=== PATIENT | female | born 1955 | race Caucasian/White ===

== ENCOUNTER 2019-07-03 19:37 | Inpatient (IN) | payer MEDICARE, OTHER ==
[~2019-07-03] VITALS: Ht 157.5 cm; Wt 74.4 kg
--- NOTE | 2019-07-03 19:50 | NUR ---
PT AAOX4. AMBULATORY BIBPA FROM [facility] FOR MEDICAL CLEARANCE. PLACED ON 5150 FOR AGGRESIVE BEHAVIOR TOWARDS STAFF. PLACED IN GOWN, ON MONITOR, AND PULSE OX. AWAITING MD FOR EVAL.
--- NOTE | 2019-07-03 19:50 | NUR ---
URINE COLLECTED AND SENT TO LAB
--- NOTE | 2019-07-03 19:58 | NUR ---
Rosario segura in ED - 07/03/19 at 2002 by ROSE MARY SALES SUPPORT MANAGER AT BEDSIDE FOR LABS
--- NOTE | 2019-07-03 20:02 | NUR ---
ASSOCIATE AGENT INSURANCE SALES AT BEDSIDE FOR LAB COLLECTION
[2019-07-03 20:10] LABS: APPEARANCE,URINE Clear (CLEAR); BILIRUBIN,URINE Negative (NEGATIVE); BLOOD, URINE Negative Ery/uL (NEGATIVE); COLOR,URINE Yellow (YELLOW); KETONES,URINE Negative (NEGATIVE); LEUKOCYTE ESTERASE ,URINE Small (NEGATIVE); NITRITE, URINE Negative (NEGATIVE); PH,URINE 5.5 (5.0-8.0); PROTEIN,URINE Negative (NEGATIVE); UGLUCOSE Negative (NEGATIVE); UROBILINOGEN,URINE 0.2 EU/dL (0.2)
[2019-07-03] MEDS ORDERED: CALC1TAB30 PO (20:12)
[2019-07-03] MEDS ORDERED: LORA10TA7 PO (20:12)
[2019-07-03] MEDS ORDERED: LEVO50TA8 PO (20:12)
[2019-07-03] MEDS ORDERED: INSU100V10 SQ (20:12)
[2019-07-03] MEDS ORDERED: QUET100T PO (20:12)
[2019-07-03] MEDS ORDERED: TYL2T PO (20:12)
[2019-07-03] MEDS ORDERED: ALOG12.52 PO (20:12)
[2019-07-03] MEDS ORDERED: METF-441 PO (20:12)
[2019-07-03] MEDS ORDERED: MELA3CAP2 PO (20:12)
[2019-07-03] MEDS ORDERED: BENZ1TAB7 PO (20:12)
[2019-07-03] MEDS ORDERED: ESCI10TA GT (20:12)
[2019-07-03] MEDS ORDERED: MIRT15TA7 PO (20:12)
[2019-07-03 20:13] LABS: BASOPHILS # (AUTO) 0.1 /CMM (0.0-0.2); BASOPHILS % (AUTO) 0.8 % (0.0-2.0); EOSINOPHILS % (AUTO) 2.4 % (0.0-6.0); HEMATOCRIT 41 % (33-45); HEMOGLOBIN 13.5 g/dL (11.5-14.8); LYMPHOCYTES # (AUTO) 2.7 /CMM (0.8-4.8); LYMPHOCYTES % (AUTO) 35.7 % (20.0-44.0); MEAN CORPUSCULAR HGB CONC 33 g/dl (31.0-36.0); MEAN CORPUSCULAR VOLUME 92 fL (82-100); MONOCYTES # (AUTO) 0.5 /CMM (0.1-1.30); MONOCYTES % (AUTO) 6.2 % (2.0-12.0); NEUTROPHILS # (AUTO) 4.2 /CMM (1.8-8.9); NEUTROPHILS % (AUTO) 54.9 % (43.0-81.0); PLATELET COUNT (AUTO) 229 /CMM (150-450); RED BLOOD CELL COUNT(AUTO) 4.44 MIL/uL (4.0-5.2); WHITE BLOOD COUNT (AUTO) 7.7 K/uL (4.3-11.0)
[2019-07-03 20:31] LABS: BACTERIA,URINE Rare /HPF (None Seen); RBC,URINE 0-2 /HPF (0-2); SQUAMOUS EPITHELIAL CELL,UR 0-2 /HPF (None Seen)
--- NOTE | 2019-07-03 20:32 | NUR ---
Patient is resting comfortably in bed with eyes closed. Easily aroused. VSS
[2019-07-03 20:44] LABS: CALCIUM, SERUM 8.8 mg/dL (8.5-10.1); CARBON DIOXIDE 26 mmol/L (21-32); CHLORIDE 103 mmol/L (98-107); GLUCOSE 167 mg/dL (74-106); POTASSIUM 4.6 mmol/L (3.5-5.1); SODIUM SERUM 138 mmol/L (136-145); UREA NITROGEN, BLOOD 19 mg/dL (7-18)
[2019-07-03 20:49] LABS: ALANINE AMINOTRANSFERASE 16 U/L (12-78); ALBUMIN 3.3 g/dL (3.4-5.0); ALKALINE PHOSPHATASE 85 U/L (46-116); ASPARTATE AMINOTRANSFERASE 17 U/L (15-37); BILIRUBIN,DIRECT 0.1 mg/dL (0.0-0.2); BILIRUBIN,TOTAL 0.2 mg/dL (0.2-1.0); TOTAL PROTEIN, SERUM 6.9 g/dL (6.4-8.2)
[2019-07-03 21:01] LABS: SALICYLATE 2.2 mg/dL (2.8-20.0)
[2019-07-03 21:02] LABS: ACETAMINOPHEN 0 ug/ml (10-30); ALCOHOL, BLOOD < 3 mg/dL (0-0)
--- NOTE | 2019-07-03 21:16 | NUR ---
Rosario segura in [facility] - 07/03/19 at 2119 by ROSE MARY MARINA CHERRY SPOKE TO GRIFFIN REGARDING PT ADMISSION.
--- NOTE | 2019-07-03 21:30 | NUR ---
REPORT GIVEN TO DEJAH RODRIGUEZ FOR JAMES
[2019-07-03] MEDS ORDERED: ZOLPIDEM TARTRATE 5 MG TABLET PO PRN (22:30)
[2019-07-03] MEDS ORDERED: ACETAMINOPHEN 325 MG TABLET PO PRN (22:30)
[2019-07-03] MEDS ORDERED: MAG HYDROX/AL HYDROX/SIMETH 30 ML UDC PO PRN (22:30)
[2019-07-03] MEDS ORDERED: MAGNESIUM HYDROXIDE 30 ML UDC PO PRN (22:30)
[2019-07-03] MEDS ORDERED: BLOOD SUGAR DIAGNOSTIC 1 EACH STRIP IN ONE (23:00)
--- NOTE | 2019-07-03 23:43 | NUR ---
GPS RN NOTE, PATIENT HAS A BLOOD SUGAR OF 163 AND NEEDS A MEDICATION RECONSULTATION. PAGED DR NEAL GROUP AND INFORMED DR NADEGE HOWARD OF MY FINDINGS. DR NADEGE HOWARD ORDER MILD INSULIN SLIDING SCALE AND SAID HE WOULD RECONCILE PATIENT MEDICATIONS IN THE A.M. ALL ORDERS NOTED AND CARRIED OUT WILL CONTINUE TO MONITOR THIS PATIENT WITH THE HELP OF STAFF.
[2019-07-04] MEDS ORDERED: DEXTROSE 50%-WATER 50 ML DISP.SYRIN IV PRN
[2019-07-04 01:25] VITALS: BP 101/67
--- NOTE | 2019-07-04 03:00 | NUR ---
GPS RN NOTES: RECEIVED A 63 Y/O FEMALE FROM ER INITIALLY FROM [facility]. PT ARRIVED ON THIS UNIT AT 2200 VIA WHEEL CHAIR WITH 1 ER ESCORT. PT ADMITTED ON 5150 FOR DTO. HOLD WAS PLACED 07/03/2019 @ 1730. PER HOLD, PT WAS PLACED ON HOLD DUE TO AGGRESSIVE BEHAVIOR TOWARDS STAFF AND RESIDENTS AT [facility] WHERE PT RESIDES. CRISIS TEAM WAS CALLED TO EVALUATE PT. PER CRISIS TEAM, UPON ARRIVAL PT WAS UPSET, YELLING, ANGRY AND CONFUSED. PT WAS YELLING AT STAFF MEMBERS AND HAD TROUBLE BEING REDIRECTED OR COOPERATIVE WITH STAFF. PRIOR TO CRISIS TEAM ARRIVAL, PT WAS THROWING OBJECTS AT STAFF WITH NO REGARD TO THE SAFETY OF OTHER RESIDENTS. UPON FACE TO FACE EVALUATION, PT PRESENTS A/O X2, APPEARS DEPRESSED, CALM, COOPERATIVE, ANXIOUS, WITHDRAWN, AND ISOLATIVE. PT IS AMBULATORY WITH STEADY GAIT. PT SIGNED ALL ADMISSION PAPERS, REPORTS SHE HAS NO NEXT OF KIN AND WANTS NON DISCLOSURES OF HER ADMISSION IN SO. ON SKIN ASSESSMENT PT HAS IRRITATION AND REDNESS ON HER RIGHT GROIN AREA, WITH MULTIPLE OLD SCARS AND SCRATCHES ON HER ABDOMEN AND BLE. ACCU CHEK DONE/BS 163. NO S/S OF ACUTE DISTRESS. PT DENIES SI, HI, OR PAIN AT THIS TIME. PT BREATHING IS EVEN AND UNLABORED WITH EQUAL RISE AND FALL OF THE CHEST WITH SPO2 OF 97%. PT IS FULL CODE AND HAS NKA. PER PT MEDICAL PAPERS, PT HISTORY INCLUDE COPD WHICH PT DENIES, TYPE 2 DIABETES, HYPOTHYROIDISM, ACUTE KIDNEY FAILURE, CORONARY DISEASE, IDIOPATHIC PERIPHERAL AUTONOMIC NEUROPATHY. PT BELONGING AND CONTRABAND WERE CHECKED, PT HAS NO CONTRABAND. PT ADVISED OF HOLD. PT RIGHTS DISCUSSED AND PT HANDBOOK PROVIDED. GUIDE TO PRESCRIPTION MEDICATION GIVEN. PT WILL BE UNDER THE CARE OF DR VELASCO PSYCHIATRIST AND VAL INTERNAL MEDICINE. PT ORIENTED TO UNIT, STAFF, DOCTORS, CARE PLAN AND UNIT POLICIES. BOTH DOCTORS HAVE BEEN NOTIFIED OF PT ADMISSION AND MED RECONCILIATION DONE. MRSA BOTH NARES DONE AT ER. FALL PRECAUTION INITIATED, SAFETY PRECAUTION INITIATED WITH Q 15MINUTES OBSERVATION. BED IN LOW LOCKED POSITION, SIDE RAILS UP X2. ALL PT NEEDS MET. WILL CONTINUE TO MONITOR FOR SAFETY, MOOD AND BEHAVIOR AND ENDORSE TO AM NURSE.
[2019-07-04] MEDS ORDERED: INSU100V3 SQ (07:25)
[2019-07-04] MEDS ORDERED: CALC-7 PO (07:25)
[2019-07-04] MEDS ORDERED: DOCU250C14 PO (07:25)
[2019-07-04] MEDS ORDERED: PSYL3.4P6 PO (07:25)
[2019-07-04] MEDS ORDERED: BLOO-668 IN (07:25)
[2019-07-04] MEDS ORDERED: MULT-447 PO (07:25)
[2019-07-04] MEDS: BLOOD SUGAR DIAGNOSTIC 1 EACH STRIP IN SCH ×4 (07:29→22:01)
[2019-07-04 08:00] VITALS: BP 110/75
--- NOTE | 2019-07-04 09:13 | NUR ---
GPS RN NURSING NOTE: RECEIVED PATIENT SITTING UP IN CHAIR. PATIENT IS AOX1-2. NO S/S OR COMPLAINTS OF PAIN AT THIS TIME. PATIENT IS DISPLAYING NO S/S OF APPARENT DISTRESS AT THIS TIME. PATIENT BREATHING IS UNLABORED WITH EQUAL RISE AND FALL OF THE CHEST. PATIENT DENIES SI/HI AND VAH. PATIENT ASSISTED WITH TURNING AND REPOSITIONING Q2HR AND PRN FOR COMFORT AND CIRCULATION. PATIENTS NEEDS ATTENDED TO. PT EDUCATED ON USE OF CALL MCGHEE. BED IN LOCKED AND LOW POSITION WITH 2 SIDE RAILS UP FOR SAFETY. ENVIRONMENTAL CHECKS DONE. FALL PRECAUTIONS IN PLACE. WILL CONTINUE TO MONITOR PATIENT Q15 FOR MOOD, SAFETY, AND BEHAVIOR.
[2019-07-04] MEDS: INSULIN REGULAR, HUMAN 100 UNIT/ML 3 ML VIAL SQ PRN ×2 (11:56→17:20)
[2019-07-04] MEDS: BENZTROPINE MESYLATE (1 MG) 1 MG TABLET PO SCH ×2 (12:30→16:19)
[2019-07-04] MEDS: ESCITALOPRAM OXALATE (10 MG) 10 MG TABLET PO SCH (13:17)
[2019-07-04] MEDS: QUETIAPINE FUMARATE 100 MG TABLET PO SCH ×2 (13:17→16:16)
--- NOTE | 2019-07-04 13:20 | NUR ---
GPS RN NOTE: COGENTIN PATIENT TOOK HER PSYCHOTROPIC MEDICATIONS BUT REFUSED COGENTIN WITH ADMINISTRATION STATING THAT SHE HAS TAKEN IT BEFORE AND IT "DRIVES HER CRAZY" Addendum: 07/04/19 at 1619 by RADHA RAMÍREZ RN refused 1700 eleanor
[2019-07-04 16:03] VITALS: BP 112/75
[2019-07-04] MEDS ORDERED: ACETAMINOPHEN 325 MG TABLET PO PRN (16:30)
[2019-07-04] MEDS ORDERED: INSULIN REGULAR, HUMAN 100 UNIT/ML 3 ML VIAL SQ PRN (16:30)
[2019-07-04] MEDS: METFORMIN 850 MG TABLET PO SCH (17:05)
[2019-07-04] MEDS: PSYLLIUM SEED 1 PKT PACKET PO SCH (17:05)
[2019-07-04] MEDS ORDERED: BLOOD SUGAR DIAGNOSTIC 1 EACH STRIP IN SCH (17:30)
[2019-07-04 20:09] VITALS: BP 120/70
[2019-07-04] MEDS: MIRTAZAPINE 15 MG TABLET PO SCH (21:39)
[2019-07-04] MEDS: INSULIN GLARGINE, 100 UNIT/ML CARTRIDGE SQ SCH (22:00)
--- NOTE | 2019-07-04 22:06 | NUR ---
GPS RN NOTE 2200 ACCU CHEK DONE. BS 149. PT REFUSED LANTUS AND REGULAR INSULIN SLIDING SCALE ORDERED. WILL CONTINUE TO MONITOR PT.
--- NOTE | 2019-07-04 22:27 | NUR ---
GPS RN NOTE PT REQUESTED FOR SLEEP MEDICATION TO ENABLE HER SLEEP. AMBIEN 5MG 1 TAB GIVEN PO ORDERED. WILL CONTINUE TO MONITOR PT AND REASSESS.
[2019-07-05 06:41] LABS: BASOPHILS % (AUTO) 0.8 % (0.0-2.0); EOSINOPHILS % (AUTO) 2.9 % (0.0-6.0); HEMATOCRIT 39 % (33-45); HEMOGLOBIN 13.3 g/dL (11.5-14.8); LYMPHOCYTES # (AUTO) 2.1 /CMM (0.8-4.8); LYMPHOCYTES % (AUTO) 34.6 % (20.0-44.0); MEAN CORPUSCULAR HGB CONC 34 g/dl (31.0-36.0); MEAN CORPUSCULAR VOLUME 91 fL (82-100); MONOCYTES # (AUTO) 0.4 /CMM (0.1-1.30); MONOCYTES % (AUTO) 6.8 % (2.0-12.0); NEUTROPHILS # (AUTO) 3.4 /CMM (1.8-8.9); NEUTROPHILS % (AUTO) 54.9 % (43.0-81.0); PLATELET COUNT (AUTO) 229 /CMM (150-450); RED BLOOD CELL COUNT(AUTO) 4.34 MIL/uL (4.0-5.2); WHITE BLOOD COUNT (AUTO) 6.2 K/uL (4.3-11.0)
[2019-07-05 06:47] LABS: CALCIUM, SERUM 8.6 mg/dL (8.5-10.1); CREATININE 0.9 mg/dL (0.6-1.3); POTASSIUM 4.2 mmol/L (3.5-5.1)
--- NOTE | 2019-07-05 06:53 | NUR ---
GPS RN NOTE PT WEEKLY SKIN ASSESSMENT DONE, PICTURES TAKEN AND PLACED IN CHART. NO NEW SKIN PROBLEMS. PT AWAKE, ALERT AND ORIENTED X 2. NO S/S OF ANY DISTRESS. NO COMPLAINS OF PAIN AT THIS TIME. WILL ENDORSE TO AM NURSE.
[2019-07-05] MEDS: LEVOTHYROXINE SODIUM 50 MCG TABLET PO SCH (07:30)
[2019-07-05] MEDS: BLOOD SUGAR DIAGNOSTIC 1 EACH STRIP IN SCH ×4 (07:38→21:30)
[2019-07-05] MEDS: INSULIN REGULAR, HUMAN 100 UNIT/ML 3 ML VIAL SQ PRN ×3 (07:40→21:29)
[2019-07-05 08:00] VITALS: BP 129/74
[2019-07-05] MEDS: METFORMIN 850 MG TABLET PO SCH ×3 (08:00→17:02)
[2019-07-05] MEDS: QUETIAPINE FUMARATE 100 MG TABLET PO SCH ×2 (09:05→16:55)
[2019-07-05] MEDS: BENZTROPINE MESYLATE (1 MG) 1 MG TABLET PO SCH ×2 (09:05→16:55)
[2019-07-05] MEDS: DOCUSATE SODIUM 250 MG CAPSULE PO SCH (09:05)
[2019-07-05] MEDS: ESCITALOPRAM OXALATE (10 MG) 10 MG TABLET PO SCH (09:05)
[2019-07-05] MEDS: CALCIUM CARB 250MG /VITAMIN D 1 UDTAB PO SCH (09:05)
[2019-07-05] MEDS: MULTIVIT W/MINERALS 1 TAB TABLET PO SCH (09:06)
[2019-07-05] MEDS: PSYLLIUM SEED 1 PKT PACKET PO SCH ×2 (09:06→16:55)
[2019-07-05] MEDS: LORATADINE 10 MG TABLET PO SCH (09:06)
[2019-07-05] MEDS: LINAGLIPTIN 5 MG TABLET PO SCH (09:07)
--- NOTE | 2019-07-05 12:53 | NUR ---
FACILITY CONTACT: MIRTHA received a call from Angie sustainable design coordinator at [facility] Address: [address] [place] [address] stating that facility will consider taking pt back once stable and clinicals are faxed to [phone]. She also states that re-admission is contingent on bed availability. SW will follow up once pt is stable for discharge planning.
--- NOTE | 2019-07-05 13:42 | NUR ---
FACILITY CONTACT: SW contacted [facility] Address: [address] [place] [address] and spoke with Danna, admissions manager rn for collateral information. Per Danna, pt has been under jail care at their facility since 2017 and is able to return once stable for discharge. She states that pt does not have any family involved with her care and that she is under Public Guardianship.
--- NOTE | 2019-07-05 13:44 | NUR ---
PUBLIC GUARDIAN: MIRTHA contacted pts Public Guardian Krissy Wallis [phone], deputy at [facility] Public Guardians Office Address: [address] [place] [address]. She states that she's pts Probate Conservator and only handles pts finances, she states that pt has a upper caser with [facility] Public [facility] Office (Yaniv Cooper [phone]/ [phone]) who MIRTHA can speak to for collateral information.
--- NOTE | 2019-07-05 13:49 | NUR ---
TRIMMER HELPER: SW contacted pts manager case with [facility] Office (Yaniv Cooper [phone]/ [phone]) for collateral information and left a voicemail for callback.
--- NOTE | 2019-07-05 15:17 | NUR ---
GROUP NOTE: SW encouraged pt to attend group on this present day discussing the topic of "discharge planning." Pt is not appropriate for group at this time as she is displaying psychotic symptoms and has labile mood. Pt yelled at SW to leave her alone. Pt was clenching her jaw, grinding her teeth, and had pressured speech with blunted affect. SW will continue to assess pts ability to participate group milieu.
[2019-07-05 16:00] VITALS: BP 116/73
--- NOTE | 2019-07-05 19:20 | NUR ---
RN OPENING NOTES: PT. RESTING IN HER BED ,CONFUSED PARANOID ,DISORGNIZED EASILY AGITATED , ALL NEEDS ATTENDED ANTICIPATED, ENCOURAGED PT. TO VERBALIZED ANY FEELING , NO ACUTE DISTRESS NOTED , NEEDS FREQUENTLY REDIRECTIONS , REALITY ORIENTIONS PROVIDED, WILL CONTINUITY WITH CARE.
[2019-07-05 20:02] VITALS: BP 99/58
[2019-07-05] MEDS: MIRTAZAPINE 15 MG TABLET PO SCH (21:05)
[2019-07-05] MEDS: INSULIN GLARGINE, 100 UNIT/ML CARTRIDGE SQ SCH (21:32)
[2019-07-06] MEDS: BLOOD SUGAR DIAGNOSTIC 1 EACH STRIP IN SCH ×4 (07:49→21:55)
--- NOTE | 2019-07-06 07:54 | NUR ---
WOUND CARE CONSULT: PT PRESENTS WITH RASH TO RT GROIN AREA, PRESENT ON ADMISSION. RECOMMENDATIONS MADE FOR SKIN CARE AND PROTECTION. DISCUSSED WITH NURSING STAFF. PT IS AMBULATORY AND CONTINENT AT THIS TIME. WILL SEE PRN. CHERRY IN AGREEMENT WITH PLAN OF CARE. Addendum: 07/06/19 at 0756 by GILMAR TRNA WNDNU Amended: Links added.
[2019-07-06 08:00] VITALS: BP 132/68
[2019-07-06] MEDS: MULTIVIT W/MINERALS 1 TAB TABLET PO SCH (08:10)
[2019-07-06] MEDS: PSYLLIUM SEED 1 PKT PACKET PO SCH ×3 (08:10→17:20)
[2019-07-06] MEDS: LORATADINE 10 MG TABLET PO SCH (08:10)
[2019-07-06] MEDS: CALCIUM CARB 250MG /VITAMIN D 1 UDTAB PO SCH (08:10)
[2019-07-06] MEDS: METFORMIN 850 MG TABLET PO SCH (08:10)
[2019-07-06] MEDS: LEVOTHYROXINE SODIUM 50 MCG TABLET PO SCH (08:10)
[2019-07-06] MEDS: BENZTROPINE MESYLATE (1 MG) 1 MG TABLET PO SCH (08:10)
[2019-07-06] MEDS: ESCITALOPRAM OXALATE (10 MG) 10 MG TABLET PO SCH (08:10)
[2019-07-06] MEDS: QUETIAPINE FUMARATE 100 MG TABLET PO SCH (08:10)
[2019-07-06] MEDS: DOCUSATE SODIUM 250 MG CAPSULE PO SCH (08:10)
[2019-07-06] MEDS: LINAGLIPTIN 5 MG TABLET PO SCH (08:11)
[2019-07-06] MEDS: INSULIN REGULAR, HUMAN 100 UNIT/ML 3 ML VIAL SQ PRN ×3 (08:44→21:57)
--- NOTE | 2019-07-06 08:44 | NUR ---
INITIAL DISCHARGE PLAN: Pt will return to [facility] Address: [address] [place] [address] . MIRTHA spoke with Danna product development coordinator who states pt is able to return once stable for discharge. MIRTHA will help form a safe and proper discharge in collaboration with .
--- NOTE | 2019-07-06 09:25 | NUR ---
GPS RN NOTE: RECEIVED PATIENT SITTING UP IN CHAIR. PATIENT IS AOX1-2. NO S/S OR COMPLAINTS OF PAIN AT THIS TIME. PATIENT IS DISPLAYING NO S/S OF APPARENT DISTRESS AT THIS TIME. RESPONDING TO INTERNAL STIMULI. PATIENT BREATHING IS UNLABORED WITH EQUAL RISE AND FALL OF THE CHEST. PATIENT DENIES SI/HI AND VAH. PATIENT ASSISTED WITH TURNING AND REPOSITIONING Q2HR AND PRN FOR COMFORT AND CIRCULATION. PATIENTS NEEDS ATTENDED TO. BED IN LOCKED AND LOW POSITION WITH 2 SIDE RAILS UP FOR SAFETY. ENVIRONMENTAL CHECKS DONE. FALL PRECAUTIONS IN PLACE. WILL CONTINUE TO MONITOR PATIENT Q15 FOR MOOD, SAFETY, AND BEHAVIOR.
[2019-07-06] MEDS: CLOTRIMAZOLE 1% 15 GM TUBE TP SCH ×2 (09:59→17:00)
--- NOTE | 2019-07-06 15:37 | NUR ---
GROUP NOTE: SW encouraged pt to attend group therapy on this present day discussing "insight into mental illness." Pt not appropriate for group at this time. Pt is responding to internal stimuli and is laying in bed and not responding to verbal cues by SW. SW will continue to encourage regulation of mood and medication compliance.
[2019-07-06 16:00] VITALS: BP 117/71
[2019-07-06] MEDS: METFORMIN 500 MG TABLET PO SCH ×2 (17:00→17:20)
--- NOTE | 2019-07-06 17:22 | NUR ---
gps rn note: wound care pt refused lotromin application. offered x3 and explained benefits. continues to refuse
[2019-07-06 20:32] VITALS: BP 123/64
[2019-07-06] MEDS: INSULIN GLARGINE, 100 UNIT/ML CARTRIDGE SQ SCH (21:56)
[2019-07-06] MEDS: ATORVASTATIN 10 MG TABLET PO SCH (21:56)
--- NOTE | 2019-07-06 21:57 | NUR ---
RN GPS NOTES PATIENT HAD AN EPISODE OF AGGRESSION, SLAMMED BEDROOM DOOR DESPITE SAFETY EDUCATION PROVIDED, PATIENT THAN PROCEEDED TO SPILL ROOMATES PITCHER ON TO ROOMATES EMPTY BED. VERBALLY AGRESSIVE YELLING "YOU BITCH" TO STAFF AND ALSO LAUGHING TO SELF. PATIENT ALSO REFUSED MEDICATION X3, DESPITE EDUCATION PROVIDED FOR SCHEDULED LIPITOR, INSULIN LANTUS AND INSULIN PER SLIDING SCALE YELLING " NO I DONT TAKE THAT GET AWAY". I WAS ABLE TO CHECK ACCUCHECK 186 AT THIS TIME. WILL CONTINUE TO MONITOR FOR ANY FURTHER CHANGES
--- NOTE | 2019-07-07 01:43 | NUR ---
rn gps chemical restraint IM administration notes patient refusing medication, slamming door despite education provided, unable to redirect, she is verbally aggressive toward staff and throwing pitcher at staff and banging on bathroom wall and also place a blanket inside toilet bowl. paged dr. calderon x2 unable to reach left voicemail and call back number, called twice, no response. called insolvency consultant to notify of findings with new orders for zyprexa 5mg IM ONCE, and Ativan 1mg IM ONCE. T.O AND READ BACK. will give as ordered and monitor effectiveness and behavior.
--- NOTE | 2019-07-07 01:55 | NUR ---
rn gps notes patient vs wnl 129/73,74,94%,18,97.8. zyprexa as ordered given to left gluteal muscle. ativan as ordered given to right gluteal muscle. will continue to monitor for effectiveness, fall precautions in place, low bed and locked,bed alarm intact. ativan witnessed and wasted with another RN. zyprexa witnessed and wasted with another RN. medication given as instructed in emr. nursing fitness supervisor made aware.
[2019-07-07] MEDS ORDERED: LORAZEPAM INJ 2 MG/ML VIAL IM ONE (02:00)
[2019-07-07] MEDS ORDERED: OLANZAPINE 10 MG VIAL IM ONE (02:00)
[2019-07-07] MEDS: BLOOD SUGAR DIAGNOSTIC 1 EACH STRIP IN SCH ×4 (07:30→21:48)
[2019-07-07 08:00] VITALS: BP 111/65
[2019-07-07] MEDS: ESCITALOPRAM OXALATE (10 MG) 10 MG TABLET PO SCH (08:52)
[2019-07-07] MEDS: PSYLLIUM SEED 1 PKT PACKET PO SCH ×2 (08:52→17:15)
[2019-07-07] MEDS: LORATADINE 10 MG TABLET PO SCH (08:53)
[2019-07-07] MEDS: METFORMIN 500 MG TABLET PO SCH ×2 (08:53→17:15)
[2019-07-07] MEDS: LINAGLIPTIN 5 MG TABLET PO SCH (08:53)
[2019-07-07] MEDS: LEVOTHYROXINE SODIUM 50 MCG TABLET PO SCH (08:53)
[2019-07-07] MEDS: CLOTRIMAZOLE 1% 15 GM TUBE TP SCH ×2 (09:06→17:15)
[2019-07-07] MEDS: QUETIAPINE FUMARATE 100 MG TABLET PO SCH ×3 (10:07→17:15)
[2019-07-07] MEDS: INSULIN REGULAR, HUMAN 100 UNIT/ML 3 ML VIAL SQ PRN ×3 (12:28→22:20)
--- NOTE | 2019-07-07 15:15 | NUR ---
GROUP NOTE: SW encourage pt to participate in group on this present day discussing the topic of " Decision-making." Pt is not appropriate for group at this time as pt is anxious, withdrawn, paranoid, depressed, irritable, agitated, has poor impulse control, ands has impaired insight and judgment.
--- NOTE | 2019-07-07 15:30 | NUR ---
PUBLIC GUARDIAN: SW received a call from pts LPS CONSERVATOR Portia Vasques, /[phone] deputy conservator at [facility] Public Guardians Office Address: [address] [place] [address] informing SW that pt is LPS conserved and will be sending Garduno 6, 7, and 8 along with the detain and treat. She also states that she wishes for pt to return to [facility].
[2019-07-07 16:00] VITALS: BP 100/98
--- NOTE | 2019-07-07 19:22 | NUR ---
GPS RN OPENING NOTE RECEIVED PATIENT RESTING IN HER BED WITH EYES CLOSED, EASILY AROUSED, ALERT AND ORIENTED X2, DISORGANIZED, HYPERVERBAL, LABILE, EASILY AGITATED, ISOLATIVE, ANXIOUS. DENIES SI/HI AT THIS TIME. NO S/S OF ANY DISTRESS AT THIS TIME. PT BREATHING IS EVEN UNLABORED WITH EQUAL RISE AND FALL OF THE CHEST. STABLE ON ROOM AIR. NO C/O PAIN VERBALIZED AT THIS TIME. PT IS MEDICATION COMPLIANT. ENVIRONMENTAL SAFETY CHECKS DONE. FALL PRECAUTION CONTINUED. BED ALARM ON. BED IN LOW LOCKED POSITION. CALL MCGHEE WITHIN REACH. WILL CONTINUE TO MONITOR Q15MIN FOR MOOD, SAFETY AND BEHAVIOR
[2019-07-07 20:00] VITALS: BP 93/54
[2019-07-07] MEDS: ATORVASTATIN 10 MG TABLET PO SCH (21:49)
[2019-07-07] MEDS: SENNOSIDES 8.6 MG TABLET PO SCH (21:49)
[2019-07-07] MEDS: INSULIN GLARGINE, 100 UNIT/ML CARTRIDGE SQ SCH (22:17)
[2019-07-07 22:45] VITALS: BP 102/60
[2019-07-08] MEDS: Z GUARD REMEDY 2 OZ OINT TP PRN (03:49)
[2019-07-08 08:00] VITALS: BP 103/60
[2019-07-08] MEDS: BLOOD SUGAR DIAGNOSTIC 1 EACH STRIP IN SCH ×4 (08:21→21:34)
[2019-07-08] MEDS: LORATADINE 10 MG TABLET PO SCH (08:22)
[2019-07-08] MEDS: LEVOTHYROXINE SODIUM 50 MCG TABLET PO SCH (08:22)
[2019-07-08] MEDS: ESCITALOPRAM OXALATE (10 MG) 10 MG TABLET PO SCH (08:22)
[2019-07-08] MEDS: LINAGLIPTIN 5 MG TABLET PO SCH (08:22)
[2019-07-08] MEDS: METFORMIN 500 MG TABLET PO SCH ×2 (08:23→16:15)
[2019-07-08] MEDS: PSYLLIUM SEED 1 PKT PACKET PO SCH ×2 (08:23→16:15)
[2019-07-08] MEDS: QUETIAPINE FUMARATE 100 MG TABLET PO SCH ×3 (08:23→16:15)
[2019-07-08] MEDS: INSULIN REGULAR, HUMAN 100 UNIT/ML 3 ML VIAL SQ PRN ×2 (08:24→12:03)
[2019-07-08] MEDS: CLOTRIMAZOLE 1% 15 GM TUBE TP SCH ×2 (08:25→16:15)
--- NOTE | 2019-07-08 08:52 | NUR ---
PUBLIC GUARDIAN: SW received detain and treat and serna on this present day from LPS CONSERVATOR Portia Vasques, /[phone]. MIRTHA placed paperwork in pts chart and pts legal status was changed to LPS Conserved.
--- NOTE | 2019-07-08 13:57 | NUR ---
RN-CO: DR VELASCO GAVE AN ORDER VIA PHONE CALL TO CHANGE LEGAL HOLD TO CONSERVATORSHIP.
--- NOTE | 2019-07-08 17:01 | NUR ---
RN NOTE BS NOTED TO BE 83 AT THIS TIME, NO INSULIN GIVEN OR REQUIRED PER S/S
[2019-07-08 20:00] VITALS: BP 111/65
--- NOTE | 2019-07-08 20:35 | NUR ---
GPS/SENIOR RESEARCH CONSULTANT NURSING NOTES: PT. LAYING IN BED RESTING. NO DISTRESS OR AGITATION NOTED. QUIET AT THIS TIME. NO C/O PAIN OR DISCOMFORT. SAFETY ENVIRONMENT OBSERVED AT ALL TIMES. WILL CONTINUE TO MONITOR Q 15 MIN FOR SAFETY AND BEHAVIOR.
[2019-07-08] MEDS: ATORVASTATIN 10 MG TABLET PO SCH (21:34)
[2019-07-08] MEDS: SENNOSIDES 8.6 MG TABLET PO SCH (21:34)
[2019-07-08] MEDS: INSULIN GLARGINE, 100 UNIT/ML CARTRIDGE SQ SCH (21:36)
[2019-07-09 08:00] VITALS: BP 117/75
[2019-07-09] MEDS: BLOOD SUGAR DIAGNOSTIC 1 EACH STRIP IN SCH ×4 (08:25→22:33)
[2019-07-09] MEDS: LORATADINE 10 MG TABLET PO SCH (08:25)
[2019-07-09] MEDS: QUETIAPINE FUMARATE 100 MG TABLET PO SCH ×3 (08:26→16:16)
[2019-07-09] MEDS: METFORMIN 500 MG TABLET PO SCH ×2 (08:26→16:17)
[2019-07-09] MEDS: ESCITALOPRAM OXALATE (10 MG) 10 MG TABLET PO SCH (08:26)
[2019-07-09] MEDS: LINAGLIPTIN 5 MG TABLET PO SCH (08:26)
[2019-07-09] MEDS: LEVOTHYROXINE SODIUM 50 MCG TABLET PO SCH (08:26)
[2019-07-09] MEDS: PSYLLIUM SEED 1 PKT PACKET PO SCH ×2 (08:27→16:17)
[2019-07-09] MEDS: CLOTRIMAZOLE 1% 15 GM TUBE TP SCH ×2 (08:28→16:26)
[2019-07-09] MEDS: INSULIN REGULAR, HUMAN 100 UNIT/ML 3 ML VIAL SQ PRN (08:30)
[2019-07-09] MEDS ORDERED: DEXTROSE 50%-WATER 50 ML DISP.SYRIN IV PRN (09:00)
--- NOTE | 2019-07-09 09:56 | NUR ---
Dr. Stone as the medical field representative of the unit gave an order for denial of right to do room search to look for the missing shower head with the hose. Staffs made a thorough search and the thing that we are looking is not in the room.
--- NOTE | 2019-07-09 10:44 | NUR ---
GPS RN NOTE: RECEIVED PATIENT LAYING IN BED, A/O X1-2. ANXIOUS, IRRITATED, GUARDED,DISORGANIZED, RESPONDING TO INTERNAL STIMULI. PARANOID, SCREAMING AT TIMES NO S/S DISTRESS NOTED AT THIS TIME . V/S WNL. PATIENT DENIES SI, HI, HALLUCINATIONS.WILL CONTINUE TO MONITOR PATIENT Q15 FOR MOOD, SAFETY AND BEHAVIOR.
[2019-07-09] MEDS: INSULIN ASPART/LISPRO 100 UNIT/ML CARTRIDGE SQ PRN (11:57)
[2019-07-09] MEDS ORDERED: SENNOSIDES 8.6 MG TABLET PO SCH (22:00)
[2019-07-09] MEDS: SENNOSIDES 8.6 MG TABLET PO SCH (22:25)
[2019-07-09] MEDS: ATORVASTATIN 10 MG TABLET PO SCH (22:25)
[2019-07-09] MEDS: INSULIN GLARGINE, 100 UNIT/ML CARTRIDGE SQ SCH (22:48)
[2019-07-09] MEDS: *INSULIN ASPART NOVOLOG 100 UNIT/ML CARTRIDGE SQ PRN (22:56)
[2019-07-10 08:00] VITALS: BP 120/67
[2019-07-10] MEDS: BLOOD SUGAR DIAGNOSTIC 1 EACH STRIP IN SCH ×4 (08:02→22:02)
[2019-07-10] MEDS: PSYLLIUM SEED 1 PKT PACKET PO SCH ×2 (08:58→16:16)
[2019-07-10] MEDS: LEVOTHYROXINE SODIUM 50 MCG TABLET PO SCH (08:59)
[2019-07-10] MEDS: LORATADINE 10 MG TABLET PO SCH (08:59)
[2019-07-10] MEDS: METFORMIN 500 MG TABLET PO SCH ×2 (08:59→16:16)
[2019-07-10] MEDS: LINAGLIPTIN 5 MG TABLET PO SCH (08:59)
[2019-07-10] MEDS: ESCITALOPRAM OXALATE (10 MG) 10 MG TABLET PO SCH (08:59)
[2019-07-10] MEDS: QUETIAPINE FUMARATE 100 MG TABLET PO SCH ×3 (08:59→16:16)
[2019-07-10] MEDS: Z GUARD REMEDY 2 OZ OINT TP PRN (09:04)
[2019-07-10] MEDS: INSULIN ASPART/LISPRO 100 UNIT/ML CARTRIDGE SQ PRN ×3 (09:06→17:18)
[2019-07-10] MEDS: CLOTRIMAZOLE 1% 15 GM TUBE TP SCH ×2 (09:09→16:19)
[2019-07-10 16:00] VITALS: BP 102/57
--- NOTE | 2019-07-10 19:20 | NUR ---
RN NOTES: PT. IN HER ROOM, PARANOID , ISOLATIVE, ,DISORGNIZED ,SUSPICIOUS ,EASILY AGITATED , TALKING TO SELF, ALL NEEDS ATTENDED ANTICIPATED, ENCOURAGED PT. TO VERBALIZED ANY FEELING , NO ACUTE DISTRESS NOTED , NEEDS FREQUENTLY REDIRECTIONS , REALITY ORIENTIONS PROVIDED, WILL CONTINUITY WITH CARE.
[2019-07-10 21:16] VITALS: BP 118/86
[2019-07-10] MEDS: ATORVASTATIN 10 MG TABLET PO SCH (21:20)
[2019-07-10] MEDS: INSULIN GLARGINE, 100 UNIT/ML CARTRIDGE SQ SCH (22:04)
[2019-07-10] MEDS: *INSULIN ASPART NOVOLOG 100 UNIT/ML CARTRIDGE SQ PRN (22:05)
[2019-07-10] MEDS: SENNOSIDES 8.6 MG TABLET PO SCH (22:10)
[2019-07-11] MEDS: BLOOD SUGAR DIAGNOSTIC 1 EACH STRIP IN SCH ×4 (07:30→22:00)
[2019-07-11] MEDS: LEVOTHYROXINE SODIUM 50 MCG TABLET PO SCH ×2 (07:30→09:15)
[2019-07-11 08:00] VITALS: BP 110/79
[2019-07-11] MEDS: LINAGLIPTIN 5 MG TABLET PO SCH ×2 (09:00→09:32)
[2019-07-11] MEDS: QUETIAPINE FUMARATE 100 MG TABLET PO SCH ×4 (09:00→16:13)
[2019-07-11] MEDS: ESCITALOPRAM OXALATE (10 MG) 10 MG TABLET PO SCH ×2 (09:00→09:32)
[2019-07-11] MEDS: LORATADINE 10 MG TABLET PO SCH ×2 (09:00→09:32)
[2019-07-11] MEDS: CLOTRIMAZOLE 1% 15 GM TUBE TP SCH ×3 (09:00→16:13)
[2019-07-11] MEDS: PSYLLIUM SEED 1 PKT PACKET PO SCH ×3 (09:00→16:13)
[2019-07-11] MEDS: METFORMIN 500 MG TABLET PO SCH ×3 (09:00→16:13)
[2019-07-11] MEDS: INSULIN ASPART/LISPRO 100 UNIT/ML CARTRIDGE SQ PRN ×2 (10:08→10:30)
--- NOTE | 2019-07-11 10:31 | NUR ---
GPS RN NOTE: REFUSAL OF MEDICATIONS PATIENT REFUSED ALL AM MEDICATIONS INCLUDING INSULIN ADMINISTRATION STATING THAT "I DO NOT TAKE DRUGS". PATIENT WAS MED COMPLIANT WITH THIS RN PREVIOUSLY AND ATTEMPTS AT EDUCATION WERE MADE. REFUSAL X3. PATIENT STARTED TO BECOME AGITATED. WILL CONTINUE TO MONITOR Q15 FOR MOOD, SAFETY AND BEHAVIOR
[2019-07-11] MEDS ORDERED: OLANZAPINE 10 MG VIAL IM STA (11:00)
[2019-07-11] MEDS ORDERED: diphenhydrAMINE HCL 50 MG/ML VIAL IM STA (11:00)
[2019-07-11] MEDS ORDERED: LORAZEPAM INJ 2 MG/ML VIAL IM STA (11:00)
--- NOTE | 2019-07-11 11:14 | NUR ---
GPS RN NOTE: IM INJECTION PATIENT TORE OFF BATHROOM DOOR AND THREW IT IN THE HALLWAY, BANGED ON THE LOWERY AND BARRICADED HERSELF IN HER ROOM WITH CHAIRS AND DRAWERS. WHEN APPROACHED PATIENT WAS VERBALLY AGGRESSIVE AND CURSING AT STAFF. DR FORTE WAS NOTIFIED AND 5MG ZYPREXA, 1MG ATIVAN, AND 50 MG BENADRYL WAS ORDERED AND ADMINISTERED. SECURITY WAS NOTIFIED AND CAME IN ASSISTING STAFF. PATIENT DID NOT FIGHT DURING ADMINISTRATION AND LAY DOWN IN BED. PATIENT IS NOW LYING IN BED, CALM. WILL CONTINUE TO MONITOR PATIENT FOR MOOD, SAFETY AND BEHAVIOR.
[2019-07-11] MEDS: *INSULIN ASPART NOVOLOG 100 UNIT/ML CARTRIDGE SQ PRN (12:13)
[2019-07-11 16:00] VITALS: BP 96/65
[2019-07-11 20:22] VITALS: BP 113/65
[2019-07-11] MEDS: ATORVASTATIN 10 MG TABLET PO SCH (22:00)
[2019-07-11] MEDS: INSULIN GLARGINE, 100 UNIT/ML CARTRIDGE SQ SCH (22:00)
[2019-07-11] MEDS: SENNOSIDES 8.6 MG TABLET PO SCH (22:53)
--- NOTE | 2019-07-11 22:54 | NUR ---
GPS RN NOTE PT PT WAS AGITATED, HYPERVERBAL, HAD TO CONTROL BEHAVIOR, BANGING ON BATHROOM WALL. REFUSED 2200 ACCU-CHEK SO LANTUS WAS NOT GIVEN. PT ALSO REFUSED LIPITOR, BUT TOOK SENOKOT. CURRENTLY LAYING IN BED. WILL CONTINUE TO MONITOR PT.
--- NOTE | 2019-07-12 01:44 | NUR ---
GPS RN NOTE PT HAS BEEN UP MOST OF THE NIGHT, THIS NURSE ASKED PT IF SHE WOULD LIKE TO TAKE SLEEPING MEDICATION BUT PT REFUSED. WILL CONTINUE TO MONITOR PT.
[2019-07-12] MEDS: BLOOD SUGAR DIAGNOSTIC 1 EACH STRIP IN SCH ×2 (07:30→11:49)
[2019-07-12 08:00] VITALS: BP 110/68
[2019-07-12] MEDS: QUETIAPINE FUMARATE 100 MG TABLET PO SCH ×2 (08:50→12:33)
[2019-07-12] MEDS: METFORMIN 500 MG TABLET PO SCH (08:50)
[2019-07-12] MEDS: LORATADINE 10 MG TABLET PO SCH (08:50)
[2019-07-12] MEDS: ESCITALOPRAM OXALATE (10 MG) 10 MG TABLET PO SCH (08:50)
[2019-07-12] MEDS: LEVOTHYROXINE SODIUM 50 MCG TABLET PO SCH (08:50)
[2019-07-12] MEDS: LINAGLIPTIN 5 MG TABLET PO SCH (08:50)
[2019-07-12] MEDS: PSYLLIUM SEED 1 PKT PACKET PO SCH (08:53)
[2019-07-12] MEDS: CLOTRIMAZOLE 1% 15 GM TUBE TP SCH (08:53)
--- NOTE | 2019-07-12 09:00 | NUR ---
GPS SOFTWARE DESIGN ENGINEER: NOTES PT REFUSED SKIN ASSESSMENT. PT REMAINS GUARDED.
--- NOTE | 2019-07-12 09:36 | NUR ---
FACILITY CONTACT: MIRTHA contacted [facility] Address: [address] [place] [address] and spoke with Danna, school coordinator to inform her MD has ordered DC for this present day. Danna requested clinicals be faxed to before pt is discharged to confirm she is stable. MIRTHA faxed clinicals.
--- NOTE | 2019-07-12 11:50 | NUR ---
FACILITY CONTACT: MIRTHA contacted [facility] Address: [address] [place] [address] and spoke with Danna, marketing services coordinator to confirmed discharge on this present day.
--- NOTE | 2019-07-12 11:57 | NUR ---
PUBLIC GUARDIAN: MIRTHA contacted LPS CONSERVATOR Portia Vasques, /[phone] and informed her pt will be discharged on this present day back to the SNF. She agreed with discharge plan.
--- NOTE | 2019-07-12 12:09 | NUR ---
DISCHARGE NOTE: Pt will be discharged at 2:00pm via [facility] to [facility] Address: [address], [place] [address] . LPS CONSERVATOR Portia Vasques, /[phone] has been notified and agrees with discharge plan. Pt is paranoid with congruent affect. Pt is responding to internal stimuli at baseline. Pt denied suicidal/homicidal ideation. Pt will be under the care of Psychiatrist: Dr. Rich Cross Address: [address] [place] [address] [address], [place] [address] and Director Inpatient Headache Program: Dr. Camilo [facility] [facility] [place] [address] [phone]. The multidisciplinary exit care form was done, printed, signed, and given to the patient.
--- NOTE | 2019-07-12 12:30 | NUR ---
GPS PRODUCT TESTER: NOTES PT MADE AWARE RE: D'C BACK TO SNF TODAY. PT REFUSED DISCHARGE SKIN PHOTOS AND ASSESSMENT.
--- NOTE | 2019-07-12 13:45 | NUR ---
gps refrigeration installer: notes dr. calderon (psychiatrist) notified for discharge order back to snf with order to continue psych medications and okay for discharge. also left message to dr. johnson (covering for dr. almendarez) via voice mail and made aware re: d'c back to [facility]. Addendum: 07/12/19 at 1405 by PAULA MARQUEZ MIXED CROP FARMER pt stable for discharge. pt denies si/hi; also pt denies auditory/visual hallucinations at this time.
--- NOTE | 2019-07-12 14:30 | NUR ---
gps food quality technician: notes report given to patricia (rn tool room supervisor) at [facility] for continuity of care.
--- NOTE | 2019-07-12 15:35 | NUR ---
gps casing running machine tender: notes ambulance here to potato picker the pt. report given to one of the crew. pt is conserv. pt stable for discharge. denies si/hi, denies auditory/visual hallucination at time of discharge. all belongings returned to pt. vss.
[2019-07-12 15:50] VITALS: BP 113/64
--- NOTE | 2019-07-12 15:50 | NUR ---
GPS FOLD SKIVER: DISCHARGED DISCHARGED TO SNF VIA AMBULANCE ACCOMPANIED BY 2 EMT IN STABLE CONDITION WITH ALL VALUABLES AND D'C PAPERS.
== END 2019-07-12 15:50 | DRG 885 ==
LOC: ER 19:44 → GPS 21:37
PROVIDERS: ADMIT Psychiatry & Neurology Psychiatry; ATTEND Internal Medicine
DX: F20.0 Paranoid schizophrenia (principal); E11.9 Type 2 diabetes mellitus without complications; Z91.19 Patient's noncompliance with other medical treatment and regimen; E03.9 Hypothyroidism, unspecified; E66.9 Obesity, unspecified; Z68.30 Body mass index [BMI] 30.0-30.9, adult; R21 Rash and other nonspecific skin eruption
CPT/HCPCS: 36415; 80048-TC; 80061-TC; 80076-TC; 80305; 81000-TC; 82962-TC; 84443-TC; 85025-TC; 87081-TC; G0480; J1200; J1815; J2060; J3490